=== PATIENT | male | born 1975 | race Caucasian/White ===

== ENCOUNTER 2018-03-27 22:07 | Emergency (ER) | payer OTHER ==
[~2018-03-27] VITALS: Ht 182.9 cm; Wt 76.4 kg
[~2018-03-27 22:07] MED LIST: DOLOPHINE HCL5 MG PO; Levaquin PO; Lopressor PO; METHADONE H5 MG/5 ML PO; Methadone PO; Mevacor PO; NAPROXEN500 MG PO; PEN-VEE K,VEET500 MG PO; PERCOCET 5/31 TABLET PO; TRAMADOL HCL50 MG PO; Zestril,Prinivil PO
[2018-03-27 23:59] VITALS: BP 124/80
== END 2018-03-27 23:59 | disposition home or self-care (01) ==
LOC: EME → EDBD 22:07 → EME 23:59
DX: T40.1X1A Poisoning by heroin, accidental (unintentional), initial encounter (principal); F10.99 Alcohol use, unspecified with unspecified alcohol-induced disorder; I10 Essential (primary) hypertension; E78.5 Hyperlipidemia, unspecified; F17.200 Nicotine dependence, unspecified, uncomplicated
CPT/HCPCS: 99281; 99284; J2310

== ENCOUNTER 2018-04-16 21:54 | Emergency (ER) | payer OTHER ==
[~2018-04-16] VITALS: Ht 182.9 cm; Wt 105.7 kg
[2018-04-17 00:47] VITALS: BP 121/80
== END 2018-04-17 00:49 | disposition home or self-care (01) ==
LOC: EME → EDBD 21:54 → EME 21:54
DX: T40.1X1A Poisoning by heroin, accidental (unintentional), initial encounter (principal); F11.10 Opioid abuse, uncomplicated; I10 Essential (primary) hypertension; E78.5 Hyperlipidemia, unspecified; F17.200 Nicotine dependence, unspecified, uncomplicated
CPT/HCPCS: 93005; 99281; 99284